=== PATIENT | male | born 1990 | race Caucasian/White ===

== ENCOUNTER 2023-05-05 21:54 | Emergency (ER) | payer SELFPAY ==
[~2023-05-05] VITALS: Ht 175.3 cm; Wt 119.0 kg
[2023-05-05 22:02] VITALS: TEMP 99.5
[2023-05-05] MEDS: normal saline 1000ML IV soln IVB ONE (23:23)
[2023-05-05 23:36] LABS: BASOPHILS % (AUTO) 0.3 % (0-1); EOSINOPHILS # (AUTO) 0.1 X10'3 (0-0.9); EOSINOPHILS % (AUTO) 0.5 % (0-6); HEMATOCRIT 43.2 % (42.0-52.0); LYMPHOCYTES # (AUTO) 2.6 X10'3 (1.1-4.8); LYMPHOCYTES % (AUTO) 17.4 % (21-51); MEAN CORPUSCULAR HEMOGLOBIN 29.2 PG (27.0-31.0); MEAN CORPUSCULAR HGB CONC 34.8 g/dL (33.0-36.5); MEAN CORPUSCULAR VOLUME 84.1 FL (78-98); MEAN PLATELET VOLUME 6.8 FL (7.4-10.4); MONOCYTES # (AUTO) 1.1 X10'3 (0-0.9); MONOCYTES % (AUTO) 7.2 % (2-12); NEUTROPHILS # (AUTO) 10.9 X10'3 (1.8-7.7); NEUTROPHILS % (AUTO) 74.6 % (42-75); PLATELET COUNT 385 X10'3 (140-440); RED BLOOD COUNT 5.13 X10'6 (4.70-6.10); WHITE BLOOD COUNT 14.7 X10'3 (4.5-11.0)
[2023-05-05 23:48] LABS: ALBUMIN 3.6 G/DL (3.4-5.0); ANION GAP 12 (8-16); BLOOD UREA NITROGEN 12 MG/DL (7-18); BUN/CREATININE RATIO 10.7 (10.0-20.0); CALCIUM 8.4 MG/DL (8.5-10.1); CHLORIDE 102 MMOL/L (99-107); CREATININE 1.12 MG/DL (0.60-1.10); GLUCOSE 150 MG/DL (70-104); LIPASE 30 U/L (16-77); POTASSIUM 3.9 MMOL/L (3.5-5.1); SODIUM 141 MMOL/L (135-145); eCRCL 94 ML/MIN; eGFR 76 ML/MIN
[2023-05-05 23:49] LABS: ETHANOL < 10 MG/DL (<10)
[2023-05-06 01:10] VITALS: BP 126/77; PULSE 108; RESP 14; O2SAT 95
== END 2023-05-06 02:37 | disposition home or self-care (01) ==
LOC: ER 21:55
DX: F12.10 Cannabis abuse, uncomplicated (principal); F41.9 Anxiety disorder, unspecified; R11.2 Nausea with vomiting, unspecified; R07.89 Other chest pain; I10 Essential (primary) hypertension
CPT/HCPCS: 36415; 71045; 80048; 80320; 83690; 84484; 85025; 93005; 96360; 96361; 99285; J7030